=== PATIENT | male | born 1955 | race Caucasian/White ===

== ENCOUNTER 2024-03-07 16:38 | Emergency (ER) | payer OTHER, SELFPAY ==
[2024-03-07 16:46] VITALS: BP 123/57
[2024-03-07 16:48] LABS: Glucose - Point of Care 198 mg/dl (70-99)
[2024-03-07 17:56] VITALS: BP 129/57
[2024-03-07 18:00] VITALS: BP 133/54
--- NOTE | 2024-03-07 18:29 | ED.GENMED ---
History of Present Illness
General
Chief Complaint: Fainting/Passed Out
Source: patient
Exam Limitations: none
Time Seen by Provider: 03/07/24 18:04
Nursing documentation reviewed up to this point in time: agreed with
History of Present Illness
History of Present Illness:
69-year-old male presenting to the emergency department today with concerns of a syncopal episode prior to arrival. He claims that he had a right-sided knee surgery 6 days ago was uncomplicated at the time but was mainly bedbound for the first few
days afterward. Today was his first day getting up and moving around. He had a few episodes of diarrhea this morning. Today was in his chair felt very lightheaded and lost consciousness this was witnessed by the this lasted for roughly a
minute and then was in and out of consciousness for a few minutes after until EMS arrival. He was then given fluids by EMS and feels much better at this point is now asymptomatic. He denies palpitations chest pain. He did have some mild shortness
of breath going to the bathroom prior to the syncopal episode.
Review of Systems
Review of Systems
Allergies reviewed?: Yes
All Other Systems: ROS reviewed and negative except as documented in HPI and ROS
Phy Exam
Physical Exam
Physical Exam:
GENERAL: Alert , in no apparent distress
EYE: pupils equal and reactive
NECK: Supple, no significant adenopathy.
ENT: o/p clr, mmm.
CARDIAC: Regular rate and rhythm .
LUNGS: Clear breath sounds bilaterally, no acute respiratory distress, no wheezes/rales/rhonchi
ABDOMEN: Soft, without focal tenderness, no r/g, no cvat
NEUROLOGICAL: Alert and oriented, no focal neuro deficits
SKIN: Warm and dry, skin intact.
MUSCULOSKELETAL: Swelling to the right leg trace pitting edema from the mid thigh distally. Bandage overlying the right knee clean dry and intact, well perfused.
PSYCH: Normal and appropriate interaction.
No
Course
Orders/Labs/Results
Orders:
Orders
03/07/24
Electrocardiogram (*1) Stat
Reason for Study: Chest Pain
Comment: DONE
03/07/24 16:46
EKG [Electrocardiogram (*1)] Urgent
Reason for Study: Syncope
EKG- Treatment ONCE
03/07/24 18:25
CT Chest Pe Study Urgent
Comment:
Reason For Exam: syncope recent knee surgery right leg swelling
03/07/24 18:36
Complete Blood Count/With Diff Urgent
Comprehensive Metabolic Panel Urgent
NT-proBNP Urgent
PTT Urgent
Prothrombin Time Urgent
Troponin I Urgent
03/07/24 20:51
Acetaminophen [Tylenol] 1,000 mg .ROUTE .STK-MED ONE
03/07/24 20:54
Acetaminophen [Tylenol] 1,000 mg PO NOW STA
Abnormal Lab Results
03/07/24 03/07/24
16:46 18:36
WBC 12.1 H 10^3/uL
(4.8-10.8)
RBC 4.41 L 10^6/uL
(4.70-6.10)
Hct 35.8 L %
(39.0-52.0)
Abs Immat Gran (auto) 0.2 H 10^3/uL
(0-0.05)
Absolute Neuts (auto) 9.7 H 10^3/uL
(1.4-6.5)
Absolute Monos (auto) 1.0 H 10^3/uL
(0.1-0.6)
Immature Gran % 1.3 H %
(0-0.5)
Neutrophils % 79.9 H %
(42.2-75.2)
Lymphocytes % 9.5 L %
(20.5-51.1)
APTT 23.0 L Sec
(23.4-35.0)
Potassium 3.0 L mmol/L
(3.5-5.1)
BUN 28 H mg/dl
(9-20)
Glucose 146 H mg/dl
(70-99)
Total Bilirubin 2.0 H mg/dl
(0.2-1.3)
POC Glucose 198 H mg/dl
(70-99)
03/07/24 18:36
03/07/24 18:36
Vital Signs
Initial and Last Documented VS:
Initial Vital Signs
Temp Pulse Resp BP Pulse Ox
97.7 F 64 20 123/57 96
03/07/24 16:46 03/07/24 16:46 03/07/24 16:46 03/07/24 16:46 03/07/24 16:46
Last Documented Vital Signs
Temp Pulse Resp BP Pulse Ox
97.9 F 64 20 158/64 94
03/07/24 19:52 03/07/24 22:24 03/07/24 22:24 03/07/24 22:24 03/07/24 22:24
MDM/Problems Addressed
MDM/Problems Addressed:
69-year-old male presenting to the emergency department today with concerns of syncopal episode. This was 6 days after knee surgery. Patient does have some right leg swelling. Did have some shortness of breath at the time currently asymptomatic
no chest pain or shortness of breath at this moment. No chest pain at the time of palpitations. On arrival vital signs are normal blood sugar level 198 patient does have a history of diabetes. EKG without acute abnormalities. Patient no distress
throughout ER stay potassium slightly low patient claims that it is chronically low he was written for supplementation of this and advised to get repeated labs within a week or 2. Also BUN to creatinine ratio was slightly high indicating some
slight dehydration was advised for increased fluid intake. CT PE resulted with no emergent findings. Other than possible esophagitis. He denies significant GI symptoms at this time but will follow-up as needed. Otherwise stable for discharge no
signs of emergent pathology return precautions given.
*Critical Care Note
Total Time (30-74mins, 75-104mins- exclusive of procedures): Not Applicable
ED Attending Note
-
Portions of this chart may have been created with voice recognition software.� Occasional wrong word or��sound alike� substitutions may have occurred due to the inherent limitations of voice recognition software.
Discharge Plan
Departure
Patient Disposition: Home (Routine Discharge)
Date of Disposition: 03/07/24
Time of Disposition: 22:50
Patient with high blood pressure during this ER visit?: No
Condition: Good
Covid-19: Not Applicable
Discharge Problem:
Syncope, Hypokalemia
Instructions: Syncope (Fainting) (DC)
Prescriptions:
New
potassium chloride 20 mEq tablet extended release
20 meq PO DAILY 7 Days Qty: 7 0RF
No Action
Januvia
100 mg PO DAILY
amlodipine benzoate
5 mg PO DAILY
carvedilol
25 mg PO DAILY
glimepiride
2 mg PO DAILY
metformin
500 mg PO BID
olmesartan-hydrochlorothiazide
1 tab PO DAILY
Rx Instructions:
40-25mg tab
rosuvastatin
5 mg PO DAILY
Referrals:
Antoine Grove MD [Family Provider] -
Activity Restrictions/Additional Instructions:
You came to the emergency department today after syncopal episode. It appeared that you might be slightly dehydrated based upon labs and additionally your potassium was slightly low. Please supplement with potassium and stay hydrated. Otherwise
her workup here was reassuring. Please follow closely as an outpatient with your primary care doctor. Return for any worsening, new or concerning symptoms.
Interventions
Interventions:
*Risk Screen - Suicide Last Done: 03/07/24 16:46
*General Assessment Last Done: 03/07/24 16:46
*Neglect/Abuse Screening Last Done: 03/07/24 16:46
ED- Fall Risk Assessment Last Done: 03/07/24 19:52
*ED COVID-19 Vaccine History Last Done: 03/07/24 18:55
ED- Cardiac Assessment Last Done: 03/07/24 19:52
ED- Neurological Assessment Last Done: 03/07/24 19:52
Discharge Date and Time
Print Language: NICARAGU[place]
[2024-03-07 19:47] LABS: % Basophils 0.2 % (0-2); % Eosinophils 1.1 % (0-6); % Immature Granulocytes 1.3 % (0-0.5); % Lymphocytes 9.5 % (20.5-51.1); % Neutrophils 79.9 % (42.2-75.2); Absolute Eosinophils 0.1 10^3/uL (0-0.7); Absolute Immature Granulocytes 0.2 10^3/uL (0-0.05); Absolute Lymphocytes 1.2 10^3/uL (1.2-3.4); Absolute Neutrophils 9.7 10^3/uL (1.4-6.5); Hematocrit 35.8 % (39.0-52.0); Hemoglobin 13.1 g/dL (13.0-18.0); Mean Corp Hgb Conc. 36.6 g/dL (33.0-37.0); Mean Corpuscular Hgb 29.7 pg (27.0-31.0); Mean Corpuscular Volume 81.2 fL (80.0-94.0); Mean Platelet Volume 8.8 fL (7.4-10.4); Nucleated Red Blood Cells % 0.2 % (-); Platelet Count 255 10^3/uL (130-400); Red Blood Cell Count 4.41 10^6/uL (4.70-6.10); Red Cell Dist. Width 13.5 % (11.5-14.5); White Blood Cell Count 12.1 10^3/uL (4.8-10.8)
[2024-03-07 19:52] VITALS: BP 147/79
[2024-03-07 19:57] LABS: INR 1.07; PT 13.7 Sec (11.4-14.6)
[2024-03-07 20:00] LABS: ALT (SGPT) 36 U/L (0-50); AST (SGOT) 25 U/L (17-59); Albumin 3.9 g/dl (3.5-5.0); Alkaline Phosphatase 70 U/L (38-126); Blood Urea Nitrogen 28 mg/dl (9-20); Carbon Dioxide 28 mmol/L (22-30); Chloride 98 mmol/L (98-107); Glucose 146 mg/dl (70-99); Sodium 140 mmol/L (135-145); Total Protein 6.3 g/dl (6.3-8.2); eGFR > 60.00
[2024-03-07 20:11] LABS: NT-proBNP 322 pg/ml; Troponin I < 0.012 ng/ml
[2024-03-07 20:52] VITALS: BP 148/70
[2024-03-07] MEDS: TYLENOL 1000 MG PO (20:54)
[2024-03-07 22:24] VITALS: BP 158/64
== END 2024-03-07 23:00 | disposition home or self-care (01) ==
LOC: EMR 16:38
PROVIDERS: Physician Assistant; EMERGENCY PHYSICIAN Emergency Medicine; FAMILY PHYSICIAN Internal Medicine
DX: E87.6 Hypokalemia (principal); R55 Syncope and collapse
CPT/HCPCS: 99285; 71275; 80053; 82962; 83880; 84484; 85025; 85610; 85730; 93005; Q9967